=== PATIENT | female | born 1995 | race Caucasian/White ===

== ENCOUNTER 2017-03-28 10:18 | Emergency (ER) | payer BC ==
[~2017-03-28] VITALS: Ht 180.3 cm; Wt 74.8 kg
== END 2017-03-28 12:07 | disposition home or self-care (01) ==
LOC: ED 10:18
DX: S00.83XA Contusion of other part of head, initial encounter (principal); F17.200 Nicotine dependence, unspecified, uncomplicated; W51.XXXA Accidental striking against or bumped into by another person, initial encounter
CPT/HCPCS: 70486; 99284